=== PATIENT | male | born 1950 | race Caucasian/White ===

== ENCOUNTER 2020-05-06 08:59 | Outpatient (CLI) | payer MEDICARE, SELFPAY ==
--- NOTE | 2020-05-06 09:17 | XR_ITS ---
WS: [id number] LUMBAR SPINE TECHNIQUE: 3 views of the lumbar spine CLINICAL INFORMATION: LOW BACK PAIN COMPARISON: None. FINDINGS: Mild lumbar curve convex left. Five [id number] lumbar vertebral bodies. Grade 1 anterolisthesis L4 on L5 measuring 3 mm. Disc s pace narrowing worse L5-S1 with vacuum disc phenomenon. Anterior hypertrophic changes lumbar spine. XR/XR lumbar spine 2-3V* [id number] IMPRESSION: 1. Grade 1 anterolisthesis L4 on L5 measuring 3 mm. 2. Disc space narrowing worse L5-S1 with vacuum disc phenomenon. 3. Anterior hypertrophic changes lumbar spine.
== END 2020-05-06 09:00 | disposition home or self-care (01) ==
LOC: RADWPI 09:06
PROVIDERS: Family Provider Family Medicine; PCP Family Medicine; Visit Provider Nurse Practitioner
DX: M54.5 Low back pain (principal)
CPT/HCPCS: 72100

== ENCOUNTER 2024-04-02 09:53 | Outpatient (CLI) | payer MEDICARE, SELFPAY ==
--- NOTE | 2024-04-02 10:05 | MR_ITS ---
WS: [id number] MRI LUMBAR SPINE NONCONTRAST HISTORY: INTERVERTEBRAL DISC DISEASE L REGION COMPARISON: 01/07/2014 TECHNIQUE: Sagittal and axial multisequence imaging is submitted. Progression of degenerative disc disease and spondylosis in the cervical spine. Central disc protrusi ons contact the ventral cord at C5-6 and C6-7 with a component of stenosis. There are a few additiona l smaller disc protrusions in the thoracic spine. Mild straightening of the normal lumbar lordosis. 2 mm anterolisthesis of L4. Moderate degenerative disc disease at L5-S1. Conus terminates normally at L1-2 disc level. L1-L2: Normal. L2-L3: Mild annular disc bulging with moderate ligamentum flavum and facet arthritis. Mild subarticul ar recess encroachment. L3-L4: Diffuse annular disc bulging with moderate ligamentum flavum and facet arthritis. Moderate pily tral and moderate bilateral subarticular recess stenosis and mild foraminal stenosis. There is disc c ontact on the traversing L4 nerve roots. L4-L5: Marked annular disc bulging with severe facet joint arthropathy and ligamentum flavum hypertro phy. Severe central with bilateral subarticular recess encroachment. Disc extends into the foramina w ith only mild foraminal stenosis, RIGHT greater than LEFT. Disc also contacts the exiting RIGHT L4 ne rve root. L5-S1: Marked annular disc bulging with severe facet joint arthropathy and ligamentum flavum hypertro phy. Central disc protrusion. Severe central with bilateral subarticular recess stenosis. Moderate fo raminal stenosis. Mild edema LEFT L4-5 facet joint. MR/MR lumbar spine wo con* [id number] IMPRESSION: 1. Progression of degenerative changes and stenosis in the cervical and lumbar spine since 2013. 2. L4-5: Severe central with bilateral subarticular recess encroachment. There is significant contact on the traversing L5 nerve roots with slight contact al so on the exiting RIGHT L4 nerve root. 3. L5-S1: Severe central with bilateral subarticular recess stenosis. Moderate foraminal stenosis due to disc and osteophyte and facet joint arthritis. 4. L3-4: Moderate central and bilateral subarticular recess stenosis. 5. Cervical disc disease at C5-6 and C6-7 resulting in cervical stenosis.
== END 2024-04-02 09:54 | disposition home or self-care (01) ==
LOC: RAD 09:54
PROVIDERS: PCP Family Medicine; Visit Provider Electrodiagnostic Medicine
DX: M51.36 Other intervertebral disc degeneration, lumbar region (principal); M48.02 Spinal stenosis, cervical region; M47.817 Spondylosis without myelopathy or radiculopathy, lumbosacral region
CPT/HCPCS: 72148

== ENCOUNTER → 2024-05-06 15:19 | Outpatient (BNVA) | payer MEDICARE, SELFPAY | PROVIDERS: PCP Family Medicine; Visit Provider Orthopaedic Surgery | DX: M48.062 Spinal stenosis, lumbar region with neurogenic claudication (principal) | CPT/HCPCS: 72110; 99204 ==

== ENCOUNTER → 2024-11-14 09:08 | Outpatient (BNVA) | payer MEDICARE, SELFPAY | PROVIDERS: PCP Family Medicine; Visit Provider Family Medicine | DX: E03.9 Hypothyroidism, unspecified (principal); I10 Essential (primary) hypertension; E78.5 Hyperlipidemia, unspecified | CPT/HCPCS: 80053; 80061; 84443; 85025 ==